=== PATIENT | male | born 1990 | race Caucasian/White ===

== ENCOUNTER 2019-07-23 10:14 | Emergency (ER) | payer SELFPAY ==
[~2019-07-23] VITALS: Ht 190.5 cm; Wt 118.2 kg
[2019-07-23 10:22] VITALS: Ht 190.5 cm; Wt 118.2 kg
[2019-07-23] MEDS ORDERED: NYSTATIN OINTME15 GM TOPICAL (10:24)
[2019-07-23] MEDS ORDERED: VOLTAREN75 MG PO (10:48)
[2019-07-23] MEDS ORDERED: VIBRAMYCIN 100100 MG PO (10:48)
[2019-07-23] MEDS ORDERED: MUPIROCIN22 GM TOPICAL (10:49)
[2019-07-23 10:59] LABS: APPEARANCE CLEAR (CLEAR); COLOR YELLOW (YELLOW); GLUCOSE 500 mg/dL (NEGATIVE); KETONE NEGATIVE (NEGATIVE); NITRITE NEGATIVE (NEGATIVE); PROTEIN NEGATIVE (NEGATIVE); SPECIFIC GRAVITY 1.015 (1.005-1.020); UROBILINOGEN NORMAL (NORMAL)
[2019-07-23 11:00] LABS: BILIRUBIN NEGATIVE (NEGATIVE)
[2019-07-23 11:24] VITALS: BP 140/77
== END 2019-07-23 11:28 | disposition home or self-care (01) ==
LOC: D.ER 10:14
PROVIDERS: Family Medicine
DX: N48.22 Cellulitis of corpus cavernosum and penis (principal)